=== PATIENT | male | born 1980 | race Caucasian/White ===

== ENCOUNTER 2022-01-22 11:00 | Inpatient (IN) | payer MEDICAID, SELFPAY ==
[2022-01-22] VITALS (15 sets, daily range): BP systolic 113–160; BP diastolic 54–86; PULSE 53–114; RESP 16–27; TEMP 35.6–37.7; O2SAT 93–100; BMI 26.6; BMI 27.8
--- NOTE | 2022-01-22 11:23 | CT_ITS ---
WS: [id number] CT scan of the abdomen and pelvis without Oral and IV contrast. Additional two-dimensional coronal an d sagittal reconstruction was performed. 01/22/2022 Clinical Data: Abdominal pain Comparison: None. DLP: 2010.[address] scans at [facility] use at least one of these dose optimization techniques: automated e xposure control; mA and/or kV adjustment per patient size (includes targeted exams where dose is matc hed to clinical indication); or iterative reconstruction. Findings: The lower lungs show no nodules, masses or effusions. The liver, gallbladder, spleen, adrenal glands and pancreas are normal. The kidneys show no cyst or masses. No renal calculi or hydronephrosis is seen. The abdominal aorta is normal in size. The appendix is enlarged and engulfed by periappendiceal inflammatory change. No definite abscess is seen. There is periappendiceal stranding. There is adjacent inflammatory change of the cecum. No diverticulitis is seen. The stomach and small bowel are not remarkable. No ascites, adenopathy, fr ee air, obstruction or mass is seen The bladder is unremarkable. No inguinal hernia is seen. The bones of the lower thorax, lumbar spine, pelvis, and hips are normal. CT/CT abdomen pelvis wo con [id number] Impression: 1. Appendiceal and periappendiceal inflammatory change with involvement of the cecum which probably indicates acute appendicitis without a definite abscess. 2. The remainder of the abdomen and pelvis shows no acute changes.
--- NOTE | 2022-01-22 11:23 | ECG_ITS ---
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 Measurements Intervals [place] Rate: 49 P: 47 [place]: 117 QRS: 16 QRSD: 86 T: 8 QT: 457 QTc: 415 Interpretive Statements SINUS BRADYCARDIA WITH SHORT [place] INTERVAL MODERATE T-WAVE ABNORMALITY, CONSIDER ANTERIOR ISCHEMIA [-0.1+ mV T-WAVE IN V3/V4] No previous ECG available for comparison Electronically Signed On 01-22-2022 19:42:39 CDT by Nick Barney M.D. [id number]
[2022-01-22] MEDS: ondansetron 2 mg/ML SDV 2 mL 4 MG IVP (11:35)
--- NOTE | 2022-01-22 11:40 | ED_ITS ---
HPI - Abdominal Pain General: Chief Complaint: Abdominal Pain Stated Complaint: N/V/D Time Seen by Provider: 01/22/22 11:01 Source: patient Mode of arrival: ambulatory Limitations: no limitations History of Present Illness: 41-year-old male presents emergency room with epigastric right upper quadrant pain for about the last 3 to 4 days. Initially began he was not feeling well was able to go to work it rather waxed and waned over the next several days he did miss 1 day of work and skipped out some other activities he had planned due to discomfort overnight began worsening this morning he had some significant nausea and vomiting he reports some diarrhea that is discolored red although he thinks it may be related to some food colorings he had some red licorice last night he also thought he had some darker vomitus after having bilious vomitus this morning. He not previously had any history of GI bleed required transfusion MD elicited complaint: abdominal pain Pertinent past history: none Onset (ago): day(s) (4) Pain Consistency: constant [facility] ED PFSH: Medical History (Updated 01/22/22 @ 13:38 by Jean Pierre Mcguire DO) Umbilical hernia Physical Exam Const: GENERAL APPEARANCE: cooperative and comfortable ORIENTATION/CONSCIOUSNESS: Yes awake, Yes oriented to person, Yes oriented to place and Yes oriented to time HENMT: COMMON NORMALS: normocephalic, atraumatic and hearing grossly normal bilaterally HEAD & SCALP: normocephalic and atraumatic Resp: COMMON NORMALS: normal respiratory effort, No retractions, No use of accessory muscles and clear to auscultation bilaterally AUSCULTATION: clear to auscultation bilaterally Cardio: COMMON NORMALS: regular rate, regular rhythm and No murmurs present (Cardio) RATE: regular rate RHYTHM: regular rhythm GI: PALPATION: Yes Tenderness to palpation present (GI) (Epigastric and right side of the abdomen.) and No Guarding due to palpation present (GI) : COMMON NORMALS: Yes no CVA tenderness BLADDER/KIDNEY EXAM: Yes no CVA tenderness Back/Pelvis: COMMON NORMALS: no CVA tenderness Extremity: COMMON NORMALS: normal to inspection, capillary refill normal, no clubbing, cyanosis or edema, no calf tenderness and no pedal edema Neuro: SENSORIUM/ORIENTATION: Yes oriented to person, Yes oriented to place and Yes oriented to time Skin: COMMON NORMALS: no rashes or lesions noted GENERAL SKIN EXAM: no rashes or lesions noted Course Vital Signs: Vital signs: Vital Signs Temperature 97.3 F L 01/22/22 13:33 Pulse Rate 83 01/22/22 13:33 Respiratory Rate 18 01/22/22 13:33 Blood Pressure 160/54 01/22/22 13:33 Pulse Oximetry 99 01/22/22 13:33 MDM - Abdominal Pain Medical Decision Making Elevated white count with CT showing acute appendicitis discussed Dr. Garcia patient be taken from the ER to the surgery department for definitive treatment have discussed with him. He is seen the patient in the department. Medical Records I reviewed the patient's medical records. Lab Data I reviewed the patient's lab results. : 01/22/22 11:40 01/22/22 11:40 Labs/Radiology: Radiology Impressions Abdomen/Pelvis CT 01/22/22 11:23 Impression: 1. Appendiceal and periappendiceal inflammatory change with involvement of the cecum which probably indicates acute appendicitis without a definite abscess. 2. The remainder of the abdomen and pelvis shows no acute changes. Laboratory Results WBC 27.7 10^3/uL (4.0-10.0) H 01/22/22 11:40 RBC 5.15 10^6/uL (4.1-5.3) 01/22/22 11:40 Hgb 14.7 g/dL (11.7-16.6) 01/22/22 11:40 Hct 44.6 % (42.0-52.0) 01/22/22 11:40 MCV 86.6 fl (80-94) 01/22/22 11:40 MCH 28.5 pg (28.0-34.0) 01/22/22 11:40 MCHC 33.0 g/dL (30.0-36.0) 01/22/22 11:40 RDW 12.6 % (12.1-15.1) 01/22/22 11:40 Plt Count 433 10^3/cmm (130-400) H 01/22/22 11:40 MPV 10.8 fL (7.4-10.4) H 01/22/22 11:40 Neut % (Auto) 92.5 % 01/22/22 11:40 Lymph % (Auto) 3.1 % 01/22/22 11:40 [place] % (Auto) 3.1 % 01/22/22 11:40 Eos % (Auto) 0.0 % 01/22/22 11:40 Baso % (Auto) 0.3 % 01/22/22 11:40 Neut # (Auto) 25.62 10^3/uL (1.8-7.7) H 01/22/22 11:40 Lymph # (Auto) 0.9 10^3/uL (0.8-4.8) 01/22/22 11:40 [place] # (Auto) 0.9 10^3/uL (0.2-0.9) 01/22/22 11:40 Eos # (Auto) 0.0 10^3/uL (0.0-0.8) 01/22/22 11:40 Baso # (Auto) 0.1 10^3/uL (0.0-0.1) 01/22/22 11:40 Nucleated RBC % (auto) 0 % 01/22/22 11:40 Nucleated RBCs # 0.0 /100WBC 01/22/22 11:40 Sodium 138 mmol/L (136-145) 01/22/22 11:40 Potassium 3.6 mmol/L (3.5-5.1) 01/22/22 11:40 Chloride 97 mmol/L (98-107) L 01/22/22 11:40 Carbon Dioxide 24 mmol/L (22-29) 01/22/22 11:40 Anion Gap 20.6 (5-19) H 01/22/22 11:40 BUN 12 mg/dL (6-20) 01/22/22 11:40 Creatinine 0.8 mg/dL (0.7-1.2) 01/22/22 11:40 GFR Calculation 107.6 mL/min (90-130) 01/22/22 11:40 Glucose 210 mg/dL (65-115) H 01/22/22 11:40 Calculated Osmolality 292 mOsm/kg (285-295) 01/22/22 11:40 Calcium 9.2 mg/dL (8.5-10.5) 01/22/22 11:40 Total Bilirubin 0.5 mg/dL (0.15-1.2) 01/22/22 11:40 AST 12 U/L (0-40) 01/22/22 11:40 ALT 13 U/L (0-41) 01/22/22 11:40 Alkaline Phosphatase 108 IU/L (40-130) 01/22/22 11:40 Total Protein 7.9 g/dL (6.6-8.7) 01/22/22 11:40 Albumin 4.3 g/dL (3.5-5.2) 01/22/22 11:40 Globulin 3.6 g/dL (1.3-4.6) 01/22/22 11:40 Lipase 8 U/L (13-60) L 01/22/22 11:40 Urine Color Dark yellow (Yellow) 01/22/22 11:50 Urine Appearance Clear (CLEAR) 01/22/22 11:50 Urine pH 7 (5-7) 01/22/22 11:50 Ur Specific [place] 1.005 (1.005-1.030) 01/22/22 11:50 Urine Protein 1+ (Negative) H 01/22/22 11:50 Urine Glucose (UA) Norm (Normal) 01/22/22 11:50 Urine Ketones 1+ (Negative) H 01/22/22 11:50 Urine Blood 2+ (Negative) H 01/22/22 11:50 Urine Nitrate Negative (Negative) 01/22/22 11:50 Urine Bilirubin 1+ (Negative) H 01/22/22 11:50 Urine Urobilinogen 4 mg/dL (Negative) H 01/22/22 11:50 Ur Leukocyte Esterase Negative (Negative) 01/22/22 11:50 Urine RBC 10-15 /hpf (0-2) H 01/22/22 11:50 Urine WBC 0-4 /hpf (0-5) H 01/22/22 11:50 Ur Squamous Epith Cells 0-4 /hpf (0-5) H 01/22/22 11:50 Amorphous Sediment Not Reportable 01/22/22 11:50 Urine Bacteria Trace /hpf (NONE) 01/22/22 11:50 Urine Mucus 4+ /hpf 01/22/22 11:50 Discharge Plan Discharge Patient Disposition: Admitted As Inpatient Clinical Impression: Acute appendicitis Condition: Stable Coding Level of Care Code 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
[2022-01-22] MEDS: sodium chloride 0.9% 1,000 ML 999 ML IV (11:49)
[2022-01-22 11:57] LABS: Basophils # 0.1 10^3/uL (0.0-0.1); Basophils % 0.3 %; Hematocrit 44.6 % (42.0-52.0); Hemoglobin 14.7 g/dL (11.7-16.6); Lymphocytes # 0.9 10^3/uL (0.8-4.8); Lymphocytes % 3.1 %; Mean Corpuscular Hemoglobin 28.5 pg (28.0-34.0); Mean Corpuscular Volume 86.6 fl (80-94); Mean Platelet Volume 10.8 fL (7.4-10.4); Monocytes # 0.9 10^3/uL (0.2-0.9); Monocytes % 3.1 %; Neutrophils # 25.62 10^3/uL (1.8-7.7); Neutrophils % 92.5 %; Nucleated Red Blood Cells % 0 %; Platelet Count 433 10^3/cmm (130-400); Red Blood Count 5.15 10^6/uL (4.1-5.3); Red Cell Distribution Width 12.6 % (12.1-15.1); White Blood Count 27.7 10^3/uL (4.0-10.0)
[2022-01-22 12:05] LABS: Add Urine Culture? Yes; Add Urine Microscopic? YES; Bacteria Urine TRACE /hpf; Bilirubin Urine 1+ (Negative); Blood Urine 2+ (Negative); Glucose Urine UA Norm (Normal); Ketones Urine 1+ (Negative); Leukocyte Esterase Urine Negative (Negative); Mucus Urine 4+ /hpf; Nitrate Urine Negative (Negative); Protein Urine 1+ (Negative); Specific Gravity, Urine 1.005 (1.005-1.030); Squamous Epithelial Cell Urine 0-4 /hpf (0-5); Urine Appearance Clear (CLEAR); Urine Color Dark Yellow (Yellow); Urobilinogen Urine 4 mg/dL (Negative); WBC Urine 0-4 /hpf (0-5); pH Urine 7 (5-7)
[2022-01-22 12:12] LABS: Alanine Aminotransferase 13 U/L (0-41); Albumin Level 4.3 g/dL (3.5-5.2); Alkaline Phosphatase 108 IU/L (40-130); Anion Gap 20.6 (5-19); Aspartate Amino Transferase 12 U/L (0-40); Blood Urea Nitrogen 12 mg/dL (6-20); Calcium 9.2 mg/dL (8.5-10.5); Carbon Dioxide 24 mmol/L (22-29); Chloride 97 mmol/L (98-107); Creatinine Clr Calc Pharmacy 131.6486; Globulin 3.6 g/dL (1.3-4.6); Glomerular Filtration Rate 107.6 mL/min (90-130); Glucose 210 mg/dL (65-115); Lipase 8 U/L (13-60); Osmolality Calculated 292 mOsm/kg (285-295); Potassium 3.6 mmol/L (3.5-5.1); Sodium 138 mmol/L (136-145); Total Bilirubin 0.5 mg/dL (0.15-1.2); Total Protein 7.9 g/dL (6.6-8.7)
[2022-01-22] MEDS: morphine 4 mg/mL SDV 1 mL IVP (12:25)
--- NOTE | 2022-01-22 13:06 | PM.HP ---
Providers/Chief Complaint Admitting Physician: Dr. Fausto Garcia DO Primary Care Provider: Wes Guevara DO Chief Complaint: N/V/D History of Present Illness Adam Soler is a 41 year old male who comes in with a 5-day history of abdominal pain nausea and vomiting. He reports that pain began Thursday was located in the right lower quadrant. Pain was sharp and severe and began radiating to his left lower quadrant. He denies any hematemesis. He is unsure if he had any blood in his stool. He reports that he started feeling better Thursday and Thursday but that his pain got much worse today. He is never had pain like this before. Palpation makes pain worse. Nothing makes it better. Pain is severe. Denies any other symptoms Review of Systems General: Reports: 10 or more systems reviewed and unremarkable except in HPI and below Medications/Allergies Home Medications Medication Instructions Recorded Confirmed Last Taken Type duloxetine 30 mg capsule,delayed 30 mg PO QAM 01/22/22 01/22/22 Unknown History release hydrocodone 5 mg-acetaminophen 325 1 tab PO QID PRN 01/22/22 01/22/22 01/22/22 05:30 History mg tablet pt states threw up Allergies Allergy/AdvReac Type Severity Reaction Status Date / Time erythromycin base Allergy ALGY-Anaphy Verified 01/22/22 11:51 laxis naproxen [From Naprosyn] Allergy ALGY-Anaphy Verified 01/22/22 11:51 laxis Penicillins Allergy ALGY-Anaphy Verified 01/22/22 11:51 laxis PFSH Acute PFSH: Medical History (Updated 01/22/22 @ 13:10 by Fausto Garcia DO) Umbilical hernia Vitals/I&O/Wt Last Vital Signs Temp 96.0 F L 01/22/22 11:00 Pulse 53 L 01/22/22 11:00 Resp 20 H 01/22/22 11:00 BP 148/83 01/22/22 11:00 Pulse Ox 98 01/22/22 11:00 Weight last 48 hrs Weight 180 lb Physical Exam Narrative: General : Patient is well developed , no acute distress, oriented x3 Head : Normal cephalic, a-traumatic. Ears : Pinnae and external canal are normal. Hearing is normal. Eyes : PERRLA, Sclera and injection are normal. No conjunctival discharge. Nose : Mucous membranes are without erythema. Throat : buccal mucosa is normal, gums are without significant recession or hypertrophy. Lungs : Equal chest rise bilaterally, no use of accessory muscles, trachea is midline. Cor : Rate and rhythm are normal. Abdomen : Soft, ND, tender to palpation right lower quadrant, some guarding, umbilical hernia present Extremities : No edema, no cyanosis or clubbing, dorsalis pedis pulses are present bilaterally, non-tender to palpation of calves. Upper extremities are normal bilaterally. Back : non-tender to palpation, no CVA tenderness. Neuro : CN II - XII intact, Upper and lower extremities have equal and full strength Data : 01/22/22 11:40 01/22/22 11:40 CT Abd/Pel: My impression: Inflammation around the cecum, likely appendicitis A&P Assessment and plan (1) Acute appendicitis: Status: Acute (2) Umbilical hernia: Status: Acute Plan 2 OR for laparoscopic appendectomy The risks and benefits of the procedure, including but limited to, bleeding, infection, scar, pain, numbness, conversion to an open procedure, damage to surrounding structures, recurrence, were explained to the patient. He is understanding of the risks and wishes to proceed. He will be admitted after the surgery. Attestations Medical Necessity Statement*: Patient undergoing emergency appendectomy. He will require postoperative antibiotics and at least 1 hospital night stay. 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
[2022-01-22] MEDS: morphine 4 mg/mL SDV 1 mL 6 MG IVP (13:10)
--- NOTE | 2022-01-22 13:30 | PC.NURSE ---
1245pm Surgeon at bedside discussing plan for surgery, including risks and benefits. Patient agrees to proceed. He has been NPO since last night at 2100. 1330 OR here, patient stable for transfer.
--- NOTE | 2022-01-22 14:08 | ANES.PREANE2 ---
Pre-Anesthetic Assessment Height/Weight: Height 1.75 m Weight 81.647 kg Temp Pulse Resp BP Pulse Ox 97.3 F L 83 18 160/54 99 01/22/22 13:33 01/22/22 13:33 01/22/22 13:33 01/22/22 13:33 01/22/22 13:33 Preop Diagnosis: acute appendicitis Operation Date: 01/22/22 15:15 Proposed Procedures p Laparoscopic Appendectomy(Not Applicable) - Fausto Garcia DO Familial anesthetic complications: None Was Beta Liu taken within 24 hours: N/A Was Clonidine taken within 24 hours: N/A Last intake: Intake Last Liquid Date 01/22/22 Last Liquid Time 08:00 Last Solid Date 01/21/22 Last Solid Time 21:00 Social Tobacco and No alcohol Exam alert, oriented x 3, clear to auscultation bilaterally and regular rate & rhythm Airway Submandibular: within normal limits Cervical ROM: within normal limits Mallampati: Class I Dentition: chipped Comments: Comments: Poor dentition History/ROS No significant complaints Pulmonary None reported CV/HEM Arrythmia (SB w/ short [place]) and None reported None reported Hepatic None reported GI Gastroesophageal Reflux Disease appendicitis Metabolic None reported Musc/skel Umbilical hernia Neuropsych None reported Anesthetic Plan ASA status: 3 (41 year old smoker with appendicitis, GERD) Anesthesia: Anesthesia Evaluation and General Other: We discussed risk and benefits of general anesthesia including PONV, sore throat (sometimes severe), corneal abrasion, positioning and peripheral nerve injuries, life threatening allergic reaction, post operative ICU admission requiring prolonged intubation, stroke, heart attack, , and rare incidences of recall. Patient consents to proceed with general anesthesia. Risk of > 500 ml blood loss (7ml/kg in children): No Medications/Allergies Home Medications Medication Instructions Recorded Confirmed Last Taken Type duloxetine 30 mg capsule,delayed 30 mg PO QAM 01/22/22 01/22/22 Unknown History release hydrocodone 5 mg-acetaminophen 325 1 tab PO QID PRN 01/22/22 01/22/22 01/22/22 05:30 History mg tablet pt states threw up Allergies Allergy/AdvReac Type Severity Reaction Status Date / Time erythromycin base Allergy ALGY-Anaphy Verified 01/22/22 11:51 laxis naproxen [From Naprosyn] Allergy ALGY-Anaphy Verified 01/22/22 11:51 laxis Penicillins Allergy ALGY-Anaphy Verified 01/22/22 11:51 laxis [facility] Anesthesia Medical History Umbilical hernia Data Anesthesia : 01/22/22 11:40 01/22/22 11:40 Short CBC 01/22/22 Range/Units 11:40 WBC 27.7 H (4.0-10.0) 10^3/uL Hgb 14.7 (11.7-16.6) g/dL Hct 44.6 (42.0-52.0) % MCV 86.6 (80-94) fl Plt Count 433 H (130-400) 10^3/cmm Neut % (Auto) 92.5 % Neut # (Auto) 25.62 H (1.8-7.7) 10^3/uL BMP 01/22/22 11:40 Sodium 138 Potassium 3.6 Chloride 97 L Carbon Dioxide 24 BUN 12 Creatinine 0.8 Glucose 210 H Calcium 9.2 Liver Function 01/22/22 Range/Units 11:40 Total Bilirubin 0.5 (0.15-1.2) mg/dL AST 12 (0-40) U/L ALT 13 (0-41) U/L Alkaline Phosphatase 108 (40-130) IU/L Albumin 4.3 (3.5-5.2) g/dL Urine 01/22/22 Range/Units 11:50 Urine Color Dark yellow (Yellow) Urine Appearance Clear (CLEAR) Urine pH 7 (5-7) Ur Specific [place] 1.005 (1.005-1.030) Urine Protein 1+ H (Negative) Urine Glucose (UA) Norm (Normal) Urine Ketones 1+ H (Negative) Urine Nitrate Negative (Negative) Urine Bilirubin 1+ H (Negative) Ur Leukocyte Esterase Negative (Negative) Urine RBC 10-15 H (0-2) /hpf Urine WBC 0-4 H (0-5) /hpf Cardiac Studies: No Data to Display
[2022-01-22] MEDS: fentaNYL 50 mcg/mL INJ 2mL IVP (15:16)
[2022-01-22] MEDS: sodium chloride 0.9% 1,000 ML 30 ML IV (15:19)
[2022-01-22] MEDS: diphenhydrAMINE 50 mg/mL SDV 1mL 12.5 MG IVP (15:34)
[2022-01-22] MEDS: ciprofloxacin 400 MG/200 ML PREMIX 200 MG IV (16:03)
[2022-01-22] MEDS: metroNIDAZOLE IV 500 MG/100 ML PREMIX 100 MG IV ×2 (16:20→20:20)
--- NOTE | 2022-01-22 17:12 | P.OP_ITS ---
Operative Report Date of procedure: January 22, 2022 Pre-op diagnosis: Preop Diagnosis acute appendicitis Post-op diagnosis: Acute Perforated Appendicitis Procedure done: Laparoscopic appendectomy Specimens removed/disposition: Appendix Pathology: Appendix Surgeon: Dr. Fausto Garcia DO Estimated blood loss: 5 Complications: None apparent Brief History: This is a very pleasant 41-year-old gentleman who comes in with a 1 week history of right lower quadrant abdominal pain. He was found to have significant inflammation around the cecum and was preoperatively diagnosed with acute appe ndicitis. The risks and benefits of the procedure, including but not limited to, bleeding, infection, scar, numbness, pain, damage to surrounding structures, need to convert to an open procedure, were explained to the patient. He was understanding of the risks and wished to proceed. Procedure: Patient was wheeled into the operative room and placed on the OR table in a supine position. Abdomen was inspected prepped and draped in usual sterile fashion. Time-out was performed and all present were in agreement. A 15 blade scalp was used to make a stab incision in the left upper quadrant and intra- abdominal insufflation was achieved using a Veress needle. After localizing the tissue incisions were made and a 12 millimeter trocar was placed into the umbilicus as well as A 5mm in the right lower quadrant and a 5mm in the left lower quadrant . The appendix was identified and was significantly inflammed and adhered to multiple small bowel loops. Careful blunt and sharp dissection was performed to separate what was a mostly obliterated appendix from the small bowel. The terminal ileum was significantly inflamed and friable. During the d issection an abscess cavity was entered, showing evidence of perforation. I used the Voyant to ligate the mesoappendix at the base. I then used 2 PDS endo- loops to snare the base of the appendix. I then used the Voyant to ligate the appendix distally. The appendix was removed from the abdomen using an Endo- Catch bag through the umbilical incision. I examined the abdomen and no further pathology was identified. Hemostasis was noted. Localized irrigation and suctioning was performed. A 19 Fr. Akil drain was placed over the cecum and into the pelvis. I then closed the umbilical site with a Luis Eduardo-Monica and 0 Vicryl suture in a figure of 8 fashion. All ports removed. Skin was washed and dried. Incisions were closed with 3-0 nylon in a simple interrupted fashion. The drain was sewn into place with 2-0 Nylon. Skin glue was applied to the stab incision. Patient tolerated the procedure well.
[2022-01-22] MEDS: HYDROmorphone 1 mg/mL INJ 1 mL 0.5 MG IVP (17:23)
[2022-01-22] MEDS: ketorolac 30 mg/mL INJ IVP ×2 (18:35→22:34)
[2022-01-22] MEDS: lactated ringers 1,000 ML 125 ML IV (18:35)
[2022-01-22] MEDS: nicotine 21 mg Patch 1 PATCH TRANSDERMA (19:15)
[2022-01-22] MEDS: HYDROmorphone 1 mg/mL INJ 1 mL IVP ×2 (19:16→21:53)
[2022-01-22] MEDS: HYDROcodone-acetaminophen 5-325 mg Tablet 1 TAB PO (20:25)
--- NOTE | 2022-01-22 20:25 | ANE.PACU2 ---
Inpatient post-anesthesia follow up: Airway intact: Yes Vital signs: Temperature 99.8 F Pulse Rate 95 Respiratory Rate 16 Blood Pressure 145/80 Pulse Oximetry 93 Oxygen Delivery Me thod Room Air Oxygen Flow Rate 8 Fraction of Inspir ed Oxygen Hydration adequate: Yes Nausea and vomiting: No Pain level: 3 (Pain 3 on discharge from PACU) Mental status: Baseline
[2022-01-22 21:02] LABS: Glucose Point of Care 123 mg/dL (70-110)
[2022-01-22] MEDS: clindamycin 600 MG/50 ML PREMIX 100 MG IV (21:26)
[2022-01-23] VITALS (15 sets, daily range): BP systolic 129–148; BP diastolic 81–88; PULSE 59–75; RESP 14–18; TEMP 36.6–37.1; O2SAT 92–98
[2022-01-23] MEDS: HYDROmorphone 1 mg/mL INJ 1 mL IVP ×7 (01:02→22:44)
[2022-01-23] MEDS: ondansetron 2 mg/ML SDV 2 mL 4 MG IVP (01:02)
[2022-01-23] MEDS: metroNIDAZOLE IV 500 MG/100 ML PREMIX 100 MG IV ×4 (02:27→20:16)
[2022-01-23] MEDS: HYDROcodone-acetaminophen 5-325 mg Tablet 1 TAB PO (02:27)
[2022-01-23 04:34] LABS: Basophils # 0.1 10^3/uL (0.0-0.1); Basophils % 0.2 %; Hematocrit 37.2 % (42.0-52.0); Hemoglobin 12.2 g/dL (11.7-16.6); Lymphocytes # 1.3 10^3/uL (0.8-4.8); Lymphocytes % 4.6 %; Mean Corpuscular HGB Conc 32.8 g/dL (30.0-36.0); Mean Corpuscular Hemoglobin 28.6 pg (28.0-34.0); Mean Corpuscular Volume 87.3 fl (80-94); Mean Platelet Volume 10.7 fL (7.4-10.4); Monocytes # 1.6 10^3/uL (0.2-0.9); Monocytes % 5.9 %; Neutrophils # 24.49 10^3/uL (1.8-7.7); Neutrophils % 88.6 %; Nucleated Red Blood Cells % 0 %; Platelet Count 288 10^3/cmm (130-400); Red Blood Count 4.26 10^6/uL (4.1-5.3); Red Cell Distribution Width 12.9 % (12.1-15.1); White Blood Count 27.6 10^3/uL (4.0-10.0)
[2022-01-23 04:50] LABS: Slide Review Slide Review Perform
[2022-01-23 04:56] LABS: Anion Gap 16.1 (5-19); Blood Urea Nitrogen 10 mg/dL (6-20); Calcium 7.9 mg/dL (8.5-10.5); Carbon Dioxide 24 mmol/L (22-29); Chloride 103 mmol/L (98-107); Glomerular Filtration Rate 107.6 mL/min (90-130); Glucose 147 mg/dL (65-115); Osmolality Calculated 290 mOsm/kg (285-295); Potassium 4.1 mmol/L (3.5-5.1); Sodium 139 mmol/L (136-145)
[2022-01-23] MEDS: heparin 5,000 unit/mL INJ 1 mL 5000 UNIT SUBCUT ×3 (05:09→21:44)
[2022-01-23] MEDS: clindamycin 600 MG/50 ML PREMIX 100 MG IV ×4 (05:09→21:42)
[2022-01-23] MEDS: ketorolac 30 mg/mL INJ IVP ×4 (05:10→21:43)
[2022-01-23] MEDS: lactated ringers 1,000 ML 125 ML IV ×2 (05:16→15:01)
[2022-01-23] MEDS: oxyCODONE-APAP 10-325 mg Tablet 1 TAB PO ×4 (08:32→20:16)
[2022-01-23] MEDS: HYDROmorphone 1 mg/mL INJ 1 mL 0.25 MG IVP (09:33)
--- NOTE | 2022-01-23 17:51 | P.PN_ITS ---
Subjective Subjective: Patient reports having significant abdominal pain this morning. Denies any nausea or vomiting. Denies any flatus or bowel movement. Vitals/I&O/Wt Last Vital Signs Temp 98.1 F 01/23/22 15:13 Pulse 71 01/23/22 15:13 Resp 18 01/23/22 16:33 BP 148/84 01/23/22 15:13 Pulse Ox 92 01/23/22 15:13 01/23/22 01/23/22 01/23/22 06:59 14:59 22:59 Intake Total 1100 / 3990 1870 / 1870 270 / 2140 Output Total 800 / 810 200 / 200 Balance 300 / 3180 1870 / 1870 70 / 1940 Weight last 48 hrs Weight 188 lb 4 oz Weight 180 lb Physical Exam Narrative: Gen: NAD, AA)x3 Abd: S, mild D, appropriate TTP, no g/r/m Drain: SS Data : 01/23/22 04:10 01/23/22 04:10 Micro: Microbiology 01/22/22 11:50 Urine Culture - Preliminary Urine,Clean Catch A&P Assessment and plan (1) Acute perforated appendicitis: Status: Acute Plan POD#1 s/p laparoscopic appendectomy Dissection was quite extensive Pain medication increased Continue abx Ambulate Attestations Medical Necessity Statement*: Patient requires further intravenous antibiotic therapy due to perforated appendicitis Coding Level of Care Code 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
[2022-01-23] MEDS: nicotine 21 mg Patch 1 PATCH TRANSDERMA (18:17)
[2022-01-24] VITALS (12 sets, daily range): BP systolic 134–172; BP diastolic 67–97; PULSE 56–79; RESP 16–18; TEMP 36.4–37.2; O2SAT 97–99
[2022-01-24] MEDS: ondansetron 2 mg/ML SDV 2 mL 4 MG IVP ×4 (01:11→21:43)
[2022-01-24] MEDS: oxyCODONE-APAP 10-325 mg Tablet 1 TAB PO ×5 (01:34→22:04)
[2022-01-24] MEDS: lactated ringers 1,000 ML 125 ML IV ×3 (01:35→23:04)
[2022-01-24 02:39] LABS: Basophils # 0.1 10^3/uL (0.0-0.1); Basophils % 0.4 %; Eosinophils % 0.1 %; Hematocrit 35.3 % (42.0-52.0); Hemoglobin 11.5 g/dL (11.7-16.6); Lymphocytes # 1.6 10^3/uL (0.8-4.8); Lymphocytes % 8.3 %; Mean Corpuscular HGB Conc 32.6 g/dL (30.0-36.0); Mean Corpuscular Hemoglobin 28.7 pg (28.0-34.0); Mean Platelet Volume 11.1 fL (7.4-10.4); Monocytes # 1.3 10^3/uL (0.2-0.9); Neutrophils # 15.64 10^3/uL (1.8-7.7); Neutrophils % 83.7 %; Nucleated Red Blood Cells % 0 %; Platelet Count 250 10^3/cmm (130-400); Red Blood Count 4.01 10^6/uL (4.1-5.3); Red Cell Distribution Width 12.9 % (12.1-15.1); White Blood Count 18.7 10^3/uL (4.0-10.0)
[2022-01-24 03:08] LABS: Anion Gap 11.8 (5-19); Blood Urea Nitrogen 10 mg/dL (6-20); Calcium 7.9 mg/dL (8.5-10.5); Carbon Dioxide 26 mmol/L (22-29); Chloride 100 mmol/L (98-107); Glucose 114 mg/dL (65-115); Osmolality Calculated 278 mOsm/kg (285-295); Potassium 3.8 mmol/L (3.5-5.1); Sodium 134 mmol/L (136-145)
[2022-01-24] MEDS: HYDROmorphone 1 mg/mL INJ 1 mL IVP ×6 (04:02→23:32)
[2022-01-24] MEDS: metroNIDAZOLE IV 500 MG/100 ML PREMIX 100 MG IV ×4 (05:46→22:03)
[2022-01-24] MEDS: ketorolac 30 mg/mL INJ IVP ×4 (05:54→23:32)
[2022-01-24] MEDS: heparin 5,000 unit/mL INJ 1 mL 5000 UNIT SUBCUT ×3 (05:55→23:03)
[2022-01-24] MEDS: metoclopramide 5 mg/mL SDV 2 mL 10 MG IVP (11:01)
[2022-01-24] MEDS: calcium carbonate 500 mg Chew Tablet 1000 MG PO ×3 (11:02→23:12)
[2022-01-24] MEDS: clindamycin 600 MG/50 ML PREMIX 100 MG IV ×2 (13:41→20:29)
--- NOTE | 2022-01-24 14:21 | PM.PN ---
Subjective Subjective: Patient reports having improved abdominal pain this morning. Denies any nausea or vomiting. Denies any BM, + flatus. Vitals/I&O/Wt Last Vital Signs Temp 98.0 F 01/24/22 11:23 Pulse 68 01/24/22 11:23 Resp 17 01/24/22 11:23 BP 148/82 01/24/22 11:23 Pulse Ox 97 01/24/22 11:23 01/23/22 01/24/22 01/24/22 22:59 06:59 14:59 Intake Total 950 / 2820 1460 / 4280 1000 / 1000 Output Total 720 / 720 Balance 230 / 2100 1460 / 3560 1000 / 1000 Weight last 48 hrs Weight 188 lb 4 oz Physical Exam Narrative: Gen: NAD, AA)x3 Abd: S, mild D, appropriate TTP, no g/r/m Drain: somewhat cloudy Data : 01/24/22 02:07 01/24/22 02:07 Micro: Microbiology 01/22/22 11:50 Urine Culture - Final Urine,Clean Catch A&P Assessment and plan (1) Acute perforated appendicitis: Status: Acute Plan POD#2 s/p laparoscopic appendectomy Dissection was quite extensive Continue abx Ambulate Attestations Medical Necessity Statement*: Patient requires further IV antibiotics following laparoscopic appendectomy for perforated appendicitis Coding Level of Care Code 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
[2022-01-24 17:15] LABS: Glucose Point of Care 99 mg/dL (70-110)
[2022-01-24 22:03] LABS: Glucose Point of Care 122 mg/dL (70-110)
[2022-01-25] VITALS (15 sets, daily range): BP systolic 158–173; BP diastolic 85–97; PULSE 66–82; RESP 16–18; TEMP 36.7–37.2; O2SAT 92–99
[2022-01-25] MEDS: ondansetron 2 mg/ML SDV 2 mL 4 MG IVP ×4 (01:40→17:31)
[2022-01-25] MEDS: oxyCODONE-APAP 10-325 mg Tablet 1 TAB PO ×6 (02:26→23:12)
[2022-01-25] MEDS: metroNIDAZOLE IV 500 MG/100 ML PREMIX 100 MG IV ×3 (03:24→20:24)
[2022-01-25] MEDS: HYDROmorphone 1 mg/mL INJ 1 mL IVP ×4 (03:31→18:06)
[2022-01-25 04:16] LABS: Basophils # 0.1 10^3/uL (0.0-0.1); Basophils % 0.4 %; Eosinophils % 0.2 %; Hematocrit 36.9 % (42.0-52.0); Hemoglobin 12.1 g/dL (11.7-16.6); Lymphocytes # 1.3 10^3/uL (0.8-4.8); Mean Corpuscular HGB Conc 32.8 g/dL (30.0-36.0); Mean Corpuscular Hemoglobin 28.2 pg (28.0-34.0); Mean Platelet Volume 11.4 fL (7.4-10.4); Monocytes # 1.4 10^3/uL (0.2-0.9); Monocytes % 7.3 %; Neutrophils # 15.66 10^3/uL (1.8-7.7); Neutrophils % 84.6 %; Nucleated Red Blood Cells % 0 %; Platelet Count 282 10^3/cmm (130-400); Red Blood Count 4.29 10^6/uL (4.1-5.3); Red Cell Distribution Width 12.5 % (12.1-15.1); White Blood Count 18.5 10^3/uL (4.0-10.0)
[2022-01-25 04:26] LABS: Anion Gap 16.1 (5-19); Blood Urea Nitrogen 8 mg/dL (6-20); Calcium 8.3 mg/dL (8.5-10.5); Carbon Dioxide 26 mmol/L (22-29); Chloride 93 mmol/L (98-107); Glomerular Filtration Rate 185.1 mL/min (90-130); Glucose 102 mg/dL (65-115); Osmolality Calculated 273 mOsm/kg (285-295); Potassium 3.1 mmol/L (3.5-5.1); Sodium 132 mmol/L (136-145)
[2022-01-25] MEDS: clindamycin 600 MG/50 ML PREMIX 100 MG IV ×3 (04:37→20:32)
[2022-01-25] MEDS: heparin 5,000 unit/mL INJ 1 mL 5000 UNIT SUBCUT ×3 (05:40→20:26)
[2022-01-25] MEDS: ketorolac 30 mg/mL INJ IVP ×3 (05:45→17:33)
--- NOTE | 2022-01-25 07:00 | PC.NURSE ---
Bedside report received from Candace LONG.
[2022-01-25] MEDS: lactated ringers 1,000 ML 125 ML IV ×2 (08:35→18:14)
--- NOTE | 2022-01-25 13:00 | P.PN_ITS ---
Subjective Subjective: Patient reports having improved abdominal pain this morning. Denies any nausea or vomiting. + BM, + flatus. Vitals/I&O/Wt Last Vital Signs Temp 98.9 F 01/25/22 12:00 Pulse 70 01/25/22 12:00 Resp 17 01/25/22 12:00 BP 170/95 01/25/22 12:00 Pulse Ox 99 01/25/22 12:00 01/24/22 01/25/22 01/25/22 22:59 06:59 14:59 Intake Total 1200 / 2300 550 / 2850 1350 / 1350 Output Total 50 / 50 900 / 950 Balance 1150 / 2250 -350 / 1900 1350 / 1350 Physical Exam Narrative: Gen: NAD, AA)x3 Abd: S, mild D, appropriate TTP, no g/r/m Drain: somewhat cloudy Data : 01/25/22 03:00 01/25/22 03:00 Micro: Microbiology 01/22/22 11:50 Urine Culture - Final Urine,Clean Catch A&P Assessment and plan (1) Acute perforated appendicitis: Status: Acute Plan POD#3 s/p laparoscopic appendectomy Dissection was quite extensive Continue abx Replace K Ambulate Attestations Medical Necessity Statement*: Patient still with significant pain and leukocytosis. Drain is somewhat purulent still. 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
[2022-01-25] MEDS: potassium chloride ER 20 mEq Tablet 40 MEQ PO ×2 (13:59→18:07)
[2022-01-25] MEDS: metroNIDAZOLE IV 500 MG/100 ML PREMIX IV (14:52)
[2022-01-25] MEDS: calcium carbonate 500 mg Chew Tablet 1000 MG PO (22:49)
[2022-01-26] VITALS (9 sets, daily range): BP systolic 152–166; BP diastolic 86–104; PULSE 71–78; RESP 14–18; TEMP 36.7–37.2; O2SAT 97–99
[2022-01-26] MEDS: ondansetron 2 mg/ML SDV 2 mL 4 MG IVP ×3 (00:06→11:24)
[2022-01-26] MEDS: ketorolac 30 mg/mL INJ IVP ×3 (00:06→11:23)
[2022-01-26] MEDS: HYDROmorphone 1 mg/mL INJ 1 mL IVP ×3 (00:13→12:37)
[2022-01-26] MEDS: oxyCODONE-APAP 10-325 mg Tablet 1 TAB PO ×2 (03:27→08:03)
[2022-01-26] MEDS: metroNIDAZOLE IV 500 MG/100 ML PREMIX 100 MG IV ×2 (03:28→07:48)
[2022-01-26] MEDS: lactated ringers 1,000 ML 125 ML IV (03:29)
[2022-01-26 04:00] LABS: Basophils # 0.1 10^3/uL (0.0-0.1); Basophils % 0.3 %; Eosinophils # 0.1 10^3/uL (0.0-0.8); Eosinophils % 0.7 %; Hematocrit 36.3 % (42.0-52.0); Hemoglobin 12.1 g/dL (11.7-16.6); Lymphocytes # 1.3 10^3/uL (0.8-4.8); Lymphocytes % 6.9 %; Mean Corpuscular HGB Conc 33.3 g/dL (30.0-36.0); Mean Corpuscular Hemoglobin 28.2 pg (28.0-34.0); Mean Corpuscular Volume 84.6 fl (80-94); Mean Platelet Volume 10.9 fL (7.4-10.4); Monocytes # 1.3 10^3/uL (0.2-0.9); Monocytes % 7.3 %; Neutrophils # 15.45 10^3/uL (1.8-7.7); Neutrophils % 84.3 %; Nucleated Red Blood Cells % 0 %; Platelet Count 316 10^3/cmm (130-400); Red Blood Count 4.29 10^6/uL (4.1-5.3); Red Cell Distribution Width 12.4 % (12.1-15.1); White Blood Count 18.3 10^3/uL (4.0-10.0)
[2022-01-26 04:27] LABS: Anion Gap 11.4 (5-19); Blood Urea Nitrogen 10 mg/dL (6-20); Calcium 8.5 mg/dL (8.5-10.5); Carbon Dioxide 29 mmol/L (22-29); Chloride 94 mmol/L (98-107); Glucose 106 mg/dL (65-115); Osmolality Calculated 271 mOsm/kg (285-295); Potassium 3.4 mmol/L (3.5-5.1); Sodium 131 mmol/L (136-145)
[2022-01-26] MEDS: clindamycin 600 MG/50 ML PREMIX 100 MG IV (05:36)
--- NOTE | 2022-01-26 12:25 | PM.DCS ---
Discharge Providers Date of Admission: 01/22/22 17:35 Date of Discharge: January 26, 2022 Attending Provider at Admission: Fausto Garcia DO Attending Provider at Discharge: Fausto Garcia DO Primary Care Provider: Wes Guevara DO Diagnoses at Discharge Discharge Diagnosis (1) Acute perforated appendicitis: Status: Acute Reason for Visit Reason for Visit: N/V/D Brief History: Acute perforated appendicitis Hospital Course Hospital Course This is a very pleasant 41-year-old gentleman who came in with abdominal pain. He was found to have perforated appendicitis. He underwent laparoscopic appendectomy. Intraoperatively he was found to have an abscess cavity and extensive inflammation. A drain was placed. He was kept for 4 days of IV antibiotics. His white blood cell count dropped daily and he was afebrile upon discharge. He was given antibiotics upon discharge and to follow-up for 2 weeks. Physical Exam Narrative: General : Patient is well developed , no acute distress, oriented x3 Head : Normal cephalic, a-traumatic. Ears : Pinnae and external canal are normal. Hearing is normal. Eyes : PERRLA, Sclera and injection are normal. No conjunctival discharge. Nose : Mucous membranes are without erythema. Throat : buccal mucosa is normal, gums are without significant recession or hypertrophy. Lungs : Equal chest rise bilaterally, no use of accessory muscles, trachea is midline. Cor : Rate and rhythm are normal. Abdomen : Soft, mild D, appropriately tender, no g/r/m Extremities : No edema, no cyanosis or clubbing, dorsalis pedis pulses are present bilaterally, non-tender to palpation of calves. Upper extremities are normal bilaterally. Back : non-tender to palpation, no CVA tenderness. Neuro : CN II - XII intact, Upper and lower extremities have equal and full strength Discharge Data Studies Completed and Pending Completed Studies During Hospitalization Category Date Time Status CT abdomen pelvis wo con [id number] Stat Cat Scan 01/22/22 11:23 Completed Pathology: Surgical [PTH] Routine Pth 01/22/22 17:18 Completed Radiology Impressions Abdomen/Pelvis CT 01/22/22 11:23 Impression: 1. Appendiceal and periappendiceal inflammatory change with involvement of the cecum which probably indicates acute appendicitis without a definite abscess. 2. The remainder of the abdomen and pelvis shows no acute changes. Laboratory Results WBC 18.3 10^3/uL (4.0-10.0) H 01/26/22 03:30 RBC 4.29 10^6/uL (4.1-5.3) 01/26/22 03:30 Hgb 12.1 g/dL (11.7-16.6) 01/26/22 03:30 Hct 36.3 % (42.0-52.0) L 01/26/22 03:30 MCV 84.6 fl (80-94) 01/26/22 03:30 MCH 28.2 pg (28.0-34.0) 01/26/22 03:30 MCHC 33.3 g/dL (30.0-36.0) 01/26/22 03:30 RDW 12.4 % (12.1-15.1) 01/26/22 03:30 Plt Count 316 10^3/cmm (130-400) 01/26/22 03:30 MPV 10.9 fL (7.4-10.4) H 01/26/22 03:30 Neut % (Auto) 84.3 % 01/26/22 03:30 Lymph % (Auto) 6.9 % 01/26/22 03:30 [place] % (Auto) 7.3 % 01/26/22 03:30 Eos % (Auto) 0.7 % 01/26/22 03:30 Baso % (Auto) 0.3 % 01/26/22 03:30 Neut # (Auto) 15.45 10^3/uL (1.8-7.7) H 01/26/22 03:30 Lymph # (Auto) 1.3 10^3/uL (0.8-4.8) 01/26/22 03:30 [place] # (Auto) 1.3 10^3/uL (0.2-0.9) H 01/26/22 03:30 Eos # (Auto) 0.1 10^3/uL (0.0-0.8) 01/26/22 03:30 Baso # (Auto) 0.1 10^3/uL (0.0-0.1) 01/26/22 03:30 Nucleated RBC % (auto) 0 % 01/26/22 03:30 Nucleated RBCs # 0.0 /100WBC 01/26/22 03:30 Sodium 131 mmol/L (136-145) L 01/26/22 03:30 Potassium 3.4 mmol/L (3.5-5.1) L 01/26/22 03:30 Chloride 94 mmol/L (98-107) L 01/26/22 03:30 Carbon Dioxide 29 mmol/L (22-29) 01/26/22 03:30 Anion Gap 11.4 (5-19) 01/26/22 03:30 BUN 10 mg/dL (6-20) 01/26/22 03:30 Creatinine 0.6 mg/dL (0.7-1.2) L 01/26/22 03:30 GFR Calculation 150.0 mL/min (90-130) H 01/26/22 03:30 Glucose 106 mg/dL (65-115) 01/26/22 03:30 POC Glucose 122 mg/dL (70-110) H 01/24/22 21:54 Calculated Osmolality 271 mOsm/kg (285-295) L 01/26/22 03:30 Calcium 8.5 mg/dL (8.5-10.5) 01/26/22 03:30 Total Bilirubin 0.5 mg/dL (0.15-1.2) 01/22/22 11:40 AST 12 U/L (0-40) 01/22/22 11:40 ALT 13 U/L (0-41) 01/22/22 11:40 Alkaline Phosphatase 108 IU/L (40-130) 01/22/22 11:40 Total Protein 7.9 g/dL (6.6-8.7) 01/22/22 11:40 Albumin 4.3 g/dL (3.5-5.2) 01/22/22 11:40 Globulin 3.6 g/dL (1.3-4.6) 01/22/22 11:40 Lipase 8 U/L (13-60) L 01/22/22 11:40 Urine Color Dark yellow (Yellow) 01/22/22 11:50 Urine Appearance Clear (CLEAR) 01/22/22 11:50 Urine pH 7 (5-7) 01/22/22 11:50 Ur Specific [place] 1.005 (1.005-1.030) 01/22/22 11:50 Urine Protein 1+ (Negative) H 01/22/22 11:50 Urine Glucose (UA) Norm (Normal) 01/22/22 11:50 Urine Ketones 1+ (Negative) H 01/22/22 11:50 Urine Blood 2+ (Negative) H 01/22/22 11:50 Urine Nitrate Negative (Negative) 01/22/22 11:50 Urine Bilirubin 1+ (Negative) H 01/22/22 11:50 Urine Urobilinogen 4 mg/dL (Negative) H 01/22/22 11:50 Ur Leukocyte Esterase Negative (Negative) 01/22/22 11:50 Urine RBC 10-15 /hpf (0-2) H 01/22/22 11:50 Urine WBC 0-4 /hpf (0-5) H 01/22/22 11:50 Ur Squamous Epith Cells 0-4 /hpf (0-5) H 01/22/22 11:50 Amorphous Sediment Not Reportable 01/22/22 11:50 Urine Bacteria Trace /hpf (NONE) 01/22/22 11:50 Urine Mucus 4+ /hpf 01/22/22 11:50 Procedures Performed Laparoscopic appendectomy Vitals Last Vital Signs Temp 98.1 F 01/26/22 11:51 Pulse 71 01/26/22 11:51 Resp 18 01/26/22 11:51 BP 166/99 01/26/22 11:51 Pulse Ox 99 01/26/22 11:51 Discharge Plan Discharge Patient Disposition: Home Condition: Stable Prescriptions: New oxycodone-acetaminophen 10-325 mg Tablet 1 tab PO Q6H PRN (Reason: Moderate Pain) Qty: 30 0RF clindamycin HCl 300 mg capsule 300 mg PO Q6H 10 Days Qty: 40 0RF ondansetron 8 mg tablet,disintegrating 8 mg PO Q8H PRN (Reason: nausea and vomiting) 7 Days Qty: 30 0RF Rx Instructions: 1st dose 1-2 hr before radiation Continued duloxetine 30 mg capsule,delayed release(DR/EC) 30 mg PO QAM 0RF Discontinued hydrocodone-acetaminophen 5-325 mg tablet 1 tab PO QID PRN (Reason: Pain) 0RF Discharge Orders: Discharge Order (Routine); Ordered 01/26/22 Ordered By: Fausto Garcia Referrals: Wes Guevara DO [Primary Care Provider] - 4-7 days Fausto Garcia DO [Physician] - 2 weeks Discharge Diet: Advance as tolerated Discharge Activity: Resume usual activity Patient Instructions: Opioid Safety Activity Restrictions/Additional Instructions: Do not soak incisions under water for 2 weeks. Shower daily. Leave bandage over drain site for 2-3 days. Discharge Attestations Time Spent in Discharge Care*: less than 30 min Quality Metrics Clinical Quality Measures [ No reported AMI, CVA or VTE this stay] Coding Level of Care Code Acute Chg FW DC note Diagnoses Acute perforated appendicitis K35.32
--- NOTE | 2022-01-26 13:16 | PC.NURSE ---
discharge paperwork gone over with pt. all questions answered. pt instructed to call clinics tomorrow and set up his follow-up appointments. medications sent to pharmacy of pt choice. david drain removed. pt tolerated fair. iv removed. pt tolerated well. pt safely wheeled out.
== END 2022-01-26 13:20 | disposition home or self-care (01) | DRG 340 ==
LOC: ER 12:59 → OPS 13:19 → MEDSURG 17:43
PROVIDERS: Admitting Provider Surgery; Emergency Provider Family Medicine; PCP Family Medicine; Visit Provider Surgery
PROC: 0DTJ4ZZ Resection of Appendix, Percutaneous Endoscopic Approach (ICD-10-PCS; CPT 44970; principal; 2022-01-22 15:15)
DX: K35.33 Acute appendicitis with perforation, localized peritonitis, and gangrene, with abscess (principal); K42.9 Umbilical hernia without obstruction or gangrene
CPT/HCPCS: 36415; 36416; 74176; 80048; 80053; 81001; 82962; 83690; 85025; 87086; 88304; 93005; 96372; J0330; J0744; J1100; J1170; J1200; J1644; J1885; J2270; J2405; J2704; J2710; J2765; J3010; J3490; J7030; S0030

== ENCOUNTER 2022-02-06 14:51 | Emergency (ER) | payer MEDICAID, SELFPAY ==
[2022-02-06 15:04] VITALS: BP 167/92; PULSE 86; RESP 16; O2SAT 99; BMI 25.8
--- NOTE | 2022-02-06 15:12 | CT_ITS ---
WS: [id number] CT ABDOMEN AND PELVIS WITH CONTRAST HISTORY: ? Abscess post appy TECHNIQUE: Imaging performed of the abdomen and pelvis with IV contrast. Single phase imaging of the abdomen. Coronal and sagittal reformats are submitted. All CT scans at [facility] use at [address] one of these dose optimization techniques: automated exposure control; mA and/or kV adjustment per patient size (includes targeted exams where dose is matched to clinical indication); or iterative re construction. IV CONTRAST: Omnipaque 300; 80 mL IV. Oral contrast: No DLP: 1650.93 mGy.cm COMPARISON: 01/22/2022 Lower thorax: Small lymph node adjacent to the LEFT distal esophagus is unchanged. No pneumonia. Hear t is normal size. No hiatal hernia. Liver/biliary system: Normal size liver. Hepatic steatosis along the falciform ligament. Normal erasmo l vein. Gallbladder: Normal. No gallstones or wall thickening. No pericholecystic fluid. Pancreas: Normal size pancreas and pancreatic duct. No adjacent inflammation. Spleen: Normal size spleen. No mass or infarct. Adrenal glands: Normal. Right kidney: Normal. Left kidney: Normal. Aorta: Mild atherosclerosis aorta. No aneurysm. Lymphadenopathy: None. Free fluid: None. GI tract: Normally distended stomach. There is increased fluid within the small bowel measuring up to 2.5 cm in diameter. At this time there is no obstruction. Recent postsurgical changes of appendectom y. There is very minimal residual inflammatory change in the RIGHT lower quadrant. No abscess and no free fluid. Abdominal wall: Unremarkable abdominal wall. No hernia. Pelvis: No free fluid or adenopathy within the pelvis. Bones: Unremarkable. CT/CT abdomen pelvis w con* [id number] IMPRESSION: 1. No pelvic abscess or RIGHT lower quadrant abscess at the appendectomy site. No free fluid. 2. Mild persistent inflammatory changes in the RIGHT lower quadrant. 3. Mild small bowel ileus. There is increase fluid within the small bowel. No obstruction. If abdominal pain increases follow-up for possible developing obst ruction in the RIGHT lower quadrant should be considered.
--- NOTE | 2022-02-06 15:17 | ED_ITS ---
HPI - Recheck/Abnormal Lab/Rx General: Chief Complaint: Recheck/Abnormal Lab/Rx Stated Complaint: Stomach pain Time Seen by Provider: 02/06/22 15:07 History of Present Illness: 41-year-old male presents for repeat evaluation. Patient was recently hospitalized due to acute appendicitis had a surgery for appendectomy but also was found to have an abscess. Patient was in the hospital approximately 4 days. He was sent home on antibiotics. Patient follow-up with his primary care provider yesterday and is scheduled to follow-up with his general surgery Dr. Garcia tomorrow. Well at his primary care providers he had labs checked and was found to have an elevated white count of 23. He has been having some worsening pain in his right lower quadrant. Has some episodes of nausea and vomiting. They are concerned potential reformation of the abscess so was sent in here for further evaluation repeat labs and CT exam. Review of Systems Const: Reports: malaise; Denies: fever(s) or chills Card: Denies: chest pain or palpitations Resp: Denies: dyspnea or productive cough GI: Reports: abdominal pain and nausea; Denies: vomiting or diarrhea : Reports: dysuria; Denies: flank pain or difficulty urinating Musc: Denies: back pain Skin/Breast: Denies: rash or pruritus Neuro: Denies: headache(s), numbness in extremities or lack of coordination Psych: Denies: anxiety or depression PFS ED PFSH: Medical History Umbilical hernia Physical Exam Const: COMMON NORMALS: no acute distress, average body habitus and patient oriented x3 HENMT: COMMON NORMALS: normocephalic and moist oral mucous membranes HEAD & SCALP: normocephalic Eye: COMMON NORMALS: Equal, round and reactive pupils present and EOMs intact bilaterally PUPIL: Yes Equal, round and reactive pupils present Resp: COMMON NORMALS: normal respiratory effort, No retractions and No use of accessory muscles Cardio: COMMON NORMALS: regular rate and regular rhythm RATE: regular rate RHYTHM: regular rhythm GI: COMMON NORMALS: Soft to palpation PALPATION: Yes Soft to palpation and Yes Tenderness to palpation present (GI) Details: LLQ and RLQ Extremity: COMMON NORMALS: normal to inspection and full ROM Neuro: COMMON NORMALS: patient oriented x3, CN's II-XII intact bilaterally and moves all extremities Psych: COMMON NORMALS: mental status grossly normal, Normal thought process present, cooperative and normal affect THOUGHT PROCESS: Normal thought process present Skin: NARRATIVE SKIN EXAM: Incisions, clean dry and intact with sutures still present, no sign of infection Course Vital Signs: Vital signs: Vital Signs Pulse Rate 80 02/06/22 17:37 Respiratory Rate 16 02/06/22 17:37 Blood Pressure 153/80 02/06/22 17:37 Pulse Oximetry 97 02/06/22 17:37 MDM - Recheck/Abnormal Lab/Rx Medical Decision Making Patient white blood cell is improved from discharge. He does have some elevated platelets, likely secondary to some mild dehydration is remaining from surgery. Patient CT exam shows no pelvic or right lower quadrant abscess. There is still some inflammatory changes postop. We will go ahead and start patient on clindamycin after discussing patient's labs and CT with Dr. Garcia. He can follow-up with his primary care provider next week. Patient's postop incision sutures were removed in the ER with no complications. Patient was stable and discharged home Lab Data : 02/06/22 15:28 02/06/22 17:01 Radiology Impressions Abdomen/Pelvis CT 02/06/22 15:12 IMPRESSION: 1. No pelvic abscess or RIGHT lower quadrant abscess at the appendectomy site. No free fluid. 2. Mild persistent inflammatory changes in the RIGHT lower quadrant. 3. Mild small bowel ileus. There is increase fluid within the small bowel. No obstruction. If abdominal pain increases follow-up for possible developing obstruction in the RIGHT lower quadrant should be considered. Laboratory Results WBC 16.9 10^3/uL (4.0-10.0) H 02/06/22 15:28 RBC 4.56 10^6/uL (4.1-5.3) 02/06/22 15:28 Hgb 13.1 g/dL (11.7-16.6) 02/06/22 15: Hct 40.2 % (42.0-52.0) L 02/06/22 15:28 MCV 88.2 fl (80-94) 02/06/22 15: MCH 28.7 pg (28.0-34.0) 02/06/22 15: MCHC 32.6 g/dL (30.0-36.0) 02/06/22: RDW 13.8 % (12.1-15.1) 02/06/22: Plt Count 658 10^3/cmm (130-400) H 02/06/22 15: MPV 8.9 fL (7.4-10.4) 02/06/22: Neut % (Auto) 72.3 % 02/06/22: Lymph % (Auto) 17.9 % 02/06/22: [place] % (Auto) 5.7 % 02/06/22: Eos % (Auto) 2.4 % 02/06/22: Baso % (Auto) 0.9 % 02/06/22: Neut # (Auto) 12.22 10^3/uL (1.8-7.7) H 02/06/22: Lymph # (Auto) 3.0 10^3/uL (0.8-4.8) 02/06/22: [place] # (Auto) 1.0 10^3/uL (0.2-0.9) H 02/06/22: Eos # (Auto) 0.4 10^3/uL (0.0-0.8) 02/06/22: Baso # (Auto) 0.2 10^3/uL (0.0-0.1) H 02/06/22: Nucleated RBC % (auto) 0 % 02/06/22: Nucleated RBCs # 0.0 /100WBC 02/06/22: Sodium 133 mmol/L (136-145) L 02/06/22 17:01 Potassium 3.9 mmol/L (3.5-5.1) 02/06/22 17: Chloride 98 mmol/L (98-107) 02/06/22 17:01 Carbon Dioxide 25 mmol/L (22-29) 02/06/22 17: Anion Gap 13.9 (5-19) 02/06/22 17:01 BUN 7 mg/dL (6-20) 02/06/22 17:01 Creatinine 0.6 mg/dL (0.7-1.2) L 02/06/22 17:01 GFR Calculation 150.0 mL/min (90-130) H 02/06/22 17:01 Glucose 83 mg/dL (65-115) 02/06/22 17:01 Calculated Osmolality 273 mOsm/kg (285-295) L 02/06/22 17:01 Lactate 1.5 mmol/L (0.5-2.2) 02/06/22 15:28 Calcium 8.5 mg/dL (8.5-10.5) 02/06/22 17:01 Total Bilirubin 0.2 mg/dL (0.15-1.2) 02/06/22 17:01 AST 22 U/L (0-40) 02/06/22 17:01 ALT 36 U/L (0-41) 02/06/22 17:01 Alkaline Phosphatase 93 IU/L (40-130) 02/06/22 17:01 Total Protein 6.5 g/dL (6.6-8.7) L 02/06/22 17:01 Albumin 3.7 g/dL (3.5-5.2) 02/06/22 17:01 Globulin 2.8 g/dL (1.3-4.6) 02/06/22 17:01 Discharge Plan Discharge Patient Disposition: Home Clinical Impression: Encounter for wound re-check, Leukocytosis Condition: Stable Prescriptions: New clindamycin HCl 300 mg capsule 300 mg PO Q8H 7 Days Qty: 21 0RF No Action oxycodone-acetaminophen 10-325 mg Tablet 1 tab PO Q6H PRN (Reason: Moderate Pain) Qty: 30 0RF ondansetron 4 mg Tablet,Disintegrating 4 mg PO Q6H PRN (Reason: Nausea) 0RF Cymbalta 30 mg Capsule,Delayed Release(Dr/Ec) 30 mg PO DAILY 0RF Discharge Orders: Discharge ED (Routine); Ordered 02/06/22 Ordered By: Lizandro Justin Referrals: Wes Guevara DO [Primary Care Provider] - Discharge Diet: Advance as tolerated Discharge Activity: Increase activity as tolerated Patient Instructions: Opioid Safety, Post Operative Pain Activity Restrictions/Additional Instructions: Follow-up with your primary care provider next week for recheck sooner if symptoms worsen Please follow-up with Dr. Garcia by phone next week Return to the ER as needed Coding Level of Care Code ED Building Construction Engineer for Chg Fwd Exam Comprehensive
[2022-02-06 15:34] LABS: Basophils # 0.2 10^3/uL (0.0-0.1); Basophils % 0.9 %; Eosinophils # 0.4 10^3/uL (0.0-0.8); Eosinophils % 2.4 %; Hematocrit 40.2 % (42.0-52.0); Hemoglobin 13.1 g/dL (11.7-16.6); Lymphocytes % 17.9 %; Mean Corpuscular HGB Conc 32.6 g/dL (30.0-36.0); Mean Corpuscular Hemoglobin 28.7 pg (28.0-34.0); Mean Corpuscular Volume 88.2 fl (80-94); Mean Platelet Volume 8.9 fL (7.4-10.4); Monocytes % 5.7 %; Neutrophils # 12.22 10^3/uL (1.8-7.7); Neutrophils % 72.3 %; Nucleated Red Blood Cells % 0 %; Platelet Count 658 10^3/cmm (130-400); Red Blood Count 4.56 10^6/uL (4.1-5.3); Red Cell Distribution Width 13.8 % (12.1-15.1); White Blood Count 16.9 10^3/uL (4.0-10.0)
[2022-02-06] MEDS: iohexol 300 mg/mL 100 mL Btl IV (15:43)
[2022-02-06 15:58] LABS: Lactate (Lactic Acid level) 1.5 mmol/L (0.5-2.2)
[2022-02-06] MEDS: HYDROcodone-acetaminophen 5-325 mg Tablet 1 TAB PO (16:57)
[2022-02-06 17:36] LABS: Alanine Aminotransferase 36 U/L (0-41); Albumin Level 3.7 g/dL (3.5-5.2); Alkaline Phosphatase 93 IU/L (40-130); Anion Gap 13.9 (5-19); Aspartate Amino Transferase 22 U/L (0-40); Blood Urea Nitrogen 7 mg/dL (6-20); Calcium 8.5 mg/dL (8.5-10.5); Carbon Dioxide 25 mmol/L (22-29); Chloride 98 mmol/L (98-107); Globulin 2.8 g/dL (1.3-4.6); Glucose 83 mg/dL (65-115); Osmolality Calculated 273 mOsm/kg (285-295); Potassium 3.9 mmol/L (3.5-5.1); Sodium 133 mmol/L (136-145); Total Bilirubin 0.2 mg/dL (0.15-1.2); Total Protein 6.5 g/dL (6.6-8.7)
[2022-02-06 17:37] VITALS: BP 153/80; PULSE 80; RESP 16; O2SAT 97
== END 2022-02-06 17:39 | disposition home or self-care (01) ==
PROVIDERS: Emergency Provider Student in an Organized Health Care Education/Training Program; PCP Family Medicine
DX: D72.829 Elevated white blood cell count, unspecified (principal); Z48.02 Encounter for removal of sutures
CPT/HCPCS: 74177; 80053; 83605; 85025; 87040; 99283; Q9967